=== PATIENT | female | born 1985 | race Caucasian/White ===

== ENCOUNTER → 2018-05-02 | Outpatient (CLI) | payer OTHER ==
[2018-05-02 18:31] LABS: BASO % 0.2 % (0.0-1.0); EOS # 0.2 10^3/uL (0.0-0.50); EOS % 1.8 % (0.0-3.0); HEMATOCRIT 36.9 % (36.0-47.0); HEMOGLOBIN 12.6 g/dl (12.0-15.5); IMMATURE GRANULOCYTE % 0.3 % (0-3.0); LYMPH # 4.1 10^3/uL (1.5-4.5); LYMPH % 40.5 % (24.0-44.0); MEAN CORPUSCULAR HEMOGLOBIN 28.3 pg (27.0-33.0); MEAN CORPUSCULAR HGB CONC 34.1 g/dl (32.0-36.5); MEAN CORPUSCULAR VOLUME 82.9 fl (80.0-96.0); MONO # 0.6 10^3/uL (0.0-0.8); MONO % 6.2 % (0.0-5.0); NEUTROPHILS # 5.1 10^3/uL (1.8-7.7); PLATELET COUNT, AUTOMATED 270 10^3/uL (150-450); RED BLOOD COUNT 4.45 10^6/uL (4.00-5.40); RED CELL DISTRIBUTION WIDTH 11.7 % (11.5-14.5)
[2018-05-02 18:57] LABS: FREE T4 1.09 NG/DL (0.76-1.46); THYROID STIMULATING HORMONE 0.664 uIU/ML (0.358-3.740)
[2018-05-02 19:09] LABS: RUBELLA IgG QUALITATIVE IMMUNE (IMMUNE)
[2018-05-02 20:51] LABS: CHLAMYDIA DNA AMPLIFICATION NEGATIVE (NEGATIVE); GC DNA AMPLIFICATION NEGATIVE (NEGATIVE)
[2018-05-04 13:09] LABS: HBsAg Prenatal NEGATIVE (NEGATIVE)
[2018-05-04 13:38] LABS: HIV 1&2 SCREEN CENTAUR NEGATIVE (NEGATIVE)
[2018-05-04 13:38] LABS: HEPATITIS C VIRUS ABY INDEX < 0.0 INDEX (<0.8)
== END ==
LOC: M SMT 15:56
DX: Z34.81 Encounter for supervision of other normal pregnancy, first trimester (principal); Z36.89 Encounter for other specified antenatal screening; Z3A.09 9 weeks gestation of pregnancy

== ENCOUNTER → 2018-07-04 | Outpatient (REF) | payer OTHER ==
[2018-07-04 23:42] LABS: CHLAMYDIA DNA AMPLIFICATION NEGATIVE (NEGATIVE); GC DNA AMPLIFICATION NEGATIVE (NEGATIVE)
== END ==
LOC: M LAB REF 17:09
DX: Z11.3 Encounter for screening for infections with a predominantly sexual mode of transmission (principal)
CPT/HCPCS: 87591

== ENCOUNTER → 2018-07-06 | Outpatient (CLI) | payer OTHER | LOC: M RAD 15:39 | DX: O09.522 Supervision of elderly multigravida, second trimester (principal); Z3A.18 18 weeks gestation of pregnancy | CPT/HCPCS: 76811 ==

== ENCOUNTER 2018-07-22 17:03 | Emergency (ER) | payer OTHER ==
[~2018-07-22] VITALS: Ht 175.3 cm; Wt 88.2 kg
[2018-07-22] MEDS ORDERED: PRENTAB55 PO (17:25)
--- NOTE | 2018-07-22 19:33 | REPVR ---
EXAM: US , Limited EXAM DATE/TIME: 07/22/2018 6:43 PM CLINICAL HISTORY: 33 years old, female; Signs and symptoms; Lmp or gestational age (in weeks): 22+; Other: Verbal argument with ; ; Additional info: Trauma TECHNIQUE: Real-time ultrasound of the maternal uterus with image documentation. Exam focused on the clinical indication. COMPARISON: US OBS SINGEL GEST 07/06/2018 3:56 PM FINDINGS: Biometry- not performed Amniotic fluid volume: Qualitatively normal Placenta: Anterior and free of the cervical os. No retroplacental fluid collections. Cervix length: 4.1 cm and closed. Presentation: Cephalic HR = 149 bpm Survey- not performed IMPRESSION: 1. Single live intrauterine . biometry and survey was not performed. 2. No retroplacental hemorrhage noted. Electronically signed by: Evangelina Wilkerson On 07/22/2018 19:32:50 PM
[2018-07-22 21:50] VITALS: BP 128/64
== END 2018-07-22 21:54 | disposition home or self-care (01) ==
LOC: M ED 17:03
DX: O99.342 Other mental disorders complicating pregnancy, second trimester (principal); F43.0 Acute stress reaction; Z3A.22 22 weeks gestation of pregnancy

== ENCOUNTER → 2018-08-08 | Outpatient (CLI) | payer OTHER ==
[~2018-08-08] MED LIST: PRENTAB55 PO
--- NOTE | 2018-08-09 02:04 | REP ---
Clinical: Anatomical evaluation. Comparison: 07/22/2018 . Findings: Examination demonstrates a single live intrauterine in cephalic presentation. motion is identified by technologist. Placenta is noted anterior and grade there are grade 1 without evidence for placenta previa or abruption. Amniotic fluid volume is normal. Cervix measures the 0.1 cm in length and appears closed. No evidence for nuchal cord. Gestational age by LMP 23 weeks 4 days with TANA 12/01/2018 . Gestational age by current measurements 24 weeks 6 days with TANA 11/22/2018 . FHR equals 144 beats per minute. Estimated weight 786 grams ( 97th percentile). Anatomical assessment demonstrates normal structures including cranium, choroid plexus, cavum, cerebellum/posterior fossa, facial features, lungs, four-chamber heart/ventricular outflow tracts, diaphragm, stomach, cord insertion/three-vessel cord, kidneys/bladder, spine, and extremities. Impression: Single live intrauterine demonstrating appropriate interval growth when compared to first ultrasound. Anatomical assessment is complete and normal. No gross abnormalities are identified. Electronically Signed by Darius Mock MD 08/09/2018 01:56 A
== END ==
LOC: M RAD 09:12
PROVIDERS: ATTEND Obstetrics & Gynecology
DX: O09.522 Supervision of elderly multigravida, second trimester (principal); Z3A.23 23 weeks gestation of pregnancy

== ENCOUNTER → 2018-09-20 | Outpatient (CLI) | payer OTHER ==
[2018-09-20 10:25] LABS: HEMATOCRIT 35.5 % (36.0-47.0); HEMOGLOBIN 11.8 g/dl (12.0-15.5); MEAN CORPUSCULAR HEMOGLOBIN 28.7 pg (27.0-33.0); MEAN CORPUSCULAR HGB CONC 33.2 g/dl (32.0-36.5); MEAN CORPUSCULAR VOLUME 86.4 fl (80.0-96.0); PLATELET COUNT, AUTOMATED 212 10^3/uL (150-450); RED BLOOD COUNT 4.11 10^6/uL (4.00-5.40); WHITE BLOOD COUNT 9.6 10^3/uL (4.0-10.0)
== END ==
LOC: M SMT 08:00
PROVIDERS: ATTEND Obstetrics & Gynecology
DX: O09.522 Supervision of elderly multigravida, second trimester (principal)

== ENCOUNTER → 2018-10-31 | Outpatient (REF) | payer OTHER | LOC: M LAB REF 17:19 | PROVIDERS: ATTEND Obstetrics & Gynecology | DX: O09.523 Supervision of elderly multigravida, third trimester (principal) ==

== ENCOUNTER 2018-11-27 00:20 | Inpatient (IN) | payer OTHER ==
[~2018-11-27] VITALS: Ht 177.8 cm; Wt 99.4 kg
[2018-11-27] VITALS (15 sets, daily range): BP systolic 112–153; BP diastolic 59–94
[2018-11-27] MEDS ORDERED: LACTATED RINGER'S 1000 ML IV STA (00:50)
[2018-11-27] MEDS ORDERED: LR 1,000 ML IV SCH (00:50)
[2018-11-27 01:06] LABS: BASO % 0.3 % (0.0-1.0); EOS # 0.2 10^3/uL (0.0-0.50); EOS % 1.3 % (0.0-3.0); HEMATOCRIT 34.3 % (36.0-47.0); HEMOGLOBIN 11.7 g/dl (12.0-15.5); MEAN CORPUSCULAR HGB CONC 34.1 g/dl (32.0-36.5); MEAN CORPUSCULAR VOLUME 84.9 fl (80.0-96.0); MONO # 0.9 10^3/uL (0.0-0.8); MONO % 7.5 % (0.0-5.0); NEUTROPHILS # 6.3 10^3/uL (1.8-7.7); NEUTROPHILS % 55.4 % (36.0-66.0); PLATELET COUNT, AUTOMATED 193 10^3/uL (150-450); RED BLOOD COUNT 4.04 10^6/uL (4.00-5.40); WHITE BLOOD COUNT 11.3 10^3/uL (4.0-10.0)
[2018-11-27] MEDS ORDERED: FENTANYL 2MCG/ML ROPIVACAINE 0.2% IN 0.9% NACL 100ML IVBAG As Ordered ONE (01:14)
[2018-11-27] MEDS ORDERED: OXYTOCIN 30 UNITS IN 0.9% NaCl 500ML IV BAG (J2590) As Ordered ONE (01:15)
--- NOTE | 2018-11-27 02:02 | IPNPDOC ---
Obstetrical Progress Note Date of Service November 27, 2018 Subjective Patient is comfortable with her epidural. Assessment Heart Rate (FHR): 125 Variability: Moderate Accelerations: Positive Decelerations: None Heart Rate Tracing: Category I Tocometer Contractions: Yes Frequency: regular Sterile Vaginal Examination Dilation: 7 cm Effacement (%): 100% Station: 0 Cervical Consistency: Soft Cervical Position: Anterior Postion/Presentation: Cephalic presentation Assessment and Plan Status: Reassuring Group B Streptococcus: Negative Anticipate: Vaginal Delivery MIS CHEW CNM November 27, 2018 02:01
[2018-11-27] MEDS ORDERED: METHYLERGONOVINE MALEATE 0.2 MG TAB PO PRN (03:00)
[2018-11-27] MEDS ORDERED: DIBUCAINE 1% OINTMENT 30GM TOP PRN (03:00)
[2018-11-27] MEDS ORDERED: IBUPROFEN 800 MG TAB PO PRN (03:00)
[2018-11-27] MEDS ORDERED: MEASLES,MUMPS,RUBELLA VACCINE INJ (MMR-II) (90707) SC SCH (03:00)
[2018-11-27] MEDS ORDERED: RHOGAM 300 MCG (1500 IU) INJ (J2790) IM SCH (03:00)
[2018-11-27] MEDS ORDERED: IBUPROFEN 600 MG TAB PO PRN (03:00)
[2018-11-27] MEDS ORDERED: DOCUSATE SODIUM 100 MG CAP PO PRN (03:00)
[2018-11-27] MEDS ORDERED: OXYTOCIN DRIP 30 UNITS in APPROPRIATE DILUENT 1 EA IV SCH (03:00)
--- NOTE | 2018-11-27 03:13 | DNPDOC ---
[facility] Delivery Note Delivery Note DATE OF DELIVERY: 11/27/2018 at 0229 PREDELIVERY DIAGNOSIS: 39-3/7 weeks' gestation and labor. POST DELIVERY DIAGNOSIS: Delivered. PROCEDURE: Spontaneous vaginal delivery. INSTRUMENTAL MUSICIAN: Mis Kincaid CNM, VITA ANESTHESIA: epidural. ESTIMATED BLOOD LOSS: 250 mL. FINDINGS: 7 pounds 7 ounces; 3360 grams; male , Score 9/9, nuchal cord times 2 tight, terminal meconium, AMA. DELIVERY SUMMARY: Patient is a 33-year-old female who is now a at 39.3 weeks gestation who presented to labor and delivery in active labor. She received an epidural for pain management. The patient progressed to fully dilated at 0211 and pushed to a living male in the OA position with restitution to LOT at 0233. A tight nuchal x2 was noted. The anterior shoulder delivered with ease and the corpus immediately followed. The baby was placed on the maternal abdomen active and crying with stimulation. The cord was clamped x2 and cut by the mother after pulsation ceased. The placenta delivered spontaneously and intact at 0233. Uterine hemostasis was achieved via rapid infusion of IV Pitocin and fundal massage. The vagina, cervix, and perineum were inspected and found to be intact. The mom is naming her son Diogenes and she plans to breast feed him. Both mom and baby are in stable condition. MIS KINCAID CNM November 27, 2018 03:13
[2018-11-27] MEDS ORDERED: ePHEDrine SULFATE 25 MG/5 ML(5MG/ML) SYRINGE IV PRN (04:00)
[2018-11-27] MEDS ORDERED: ONDANSETRON 4MG/2ML VIAL (J2405) IV PRN (04:00)
[2018-11-27] MEDS ORDERED: EPIDURAL/PCA KEYS XX PRN (04:00)
[2018-11-27] MEDS ORDERED: EPIDURAL COMMENT XX SCH (04:00)
[2018-11-27] MEDS ORDERED: diphenhydrAMINE INJ 50MG/ML VIAL (J1200) IV PRN (04:00)
[2018-11-27] MEDS ORDERED: NALOXONE INJ 0.4 MG/1 ML VIAL (J2310) IV PRN (04:00)
[2018-11-27] MEDS ORDERED: FENTANYL/ROPIVACAINE/NACL BAG 100 ML EPIDURAL SCH (04:00)
[2018-11-27] MEDS ORDERED: REFRIGERATOR IV KEYS XX PRN (04:00)
[2018-11-27] MEDS: ACETAMINOPHEN TAB 650MG DOSE (2X325MG) PO PRN (04:40)
--- NOTE | 2018-11-27 05:30 | HPE ---
DATE OF ADMISSION: The patient is a 33-year-old female who is a (G) 2, para (P) 1-0-0-1 at 39 weeks and 3 days gestation with an estimated date of delivery (TANA) of 12/01/2018 based on her last menstrual period and consistent with her first trimester ultrasound. The patient initiated care in her first trimester with [facility]. Her has been uncomplicated. She presents to labor and delivery with complaints of contractions. She reports active movement. She denies leaking of fluid or vaginal bleeding. ALLERGIES: No known drug allergies. CURRENT MEDICATIONS: - Ranitidine 150 mg - vitamins PAST MEDICAL HISTORY: Varicella as a child. PAST SURGICAL HISTORY: None. SOCIAL HISTORY: The patient is legally from her . She is [place] and does not speak Samoan well. There is no history alcohol abuse or drug use. She denies ever smoking. She has not history of sexually transmitted infections. FAMILY HISTORY: Significant for diabetes and hypertension. OBSTETRICAL HISTORY: Past April 2012 at 38 weeks the patient delivered a male weighing 6 pounds, 6 ounces via vaginal delivery without any complications. OBSTETRICAL LABS: The patient's blood type is O positive with a negative antibody screen. Her hemoglobin was 12.6 and hematocrit was 36.9 with platelets 270. Rubella immune. VDRL nonreactive. She had no growth in her urine. Hepatitis B surface antigen is negative. HIV is negative. Hepatitis C is nonreactive. Gonorrhea and chlamydia are both negative. Her one hour diabetes screen is 97 with a hemoglobin 11.8, and hematocrit of 35.5 on 09/20/2018 with platelets of 212. Her group B Streptococcus (GBS) was negative. heart rate 125 with moderate variability, positive accelerations, occasional variable decelerations with contractions. Contractions every 3-5 minutes. VAGINAL EXAMINATION: The cervix is dilated at 6 cm, 100% effaced and zero station, membranes are intact. Scant bloody show noted with exam. PHYSICAL EXAMINATION: GENERAL: Alert and oriented times three. RESPIRATORY: Regular rate in-between contractions with no use of accessory muscles. ABDOMEN: Gravid, soft to palpation between contractions, strong palpation with contractions. EXTREMITIES: Bilateral generalized edema in lower feet and legs. No clonus. ASSESSMENT: Intrauterine at 39.3 weeks. Active labor. Category 2 heart rate tracing. Negative group B Streptococcus (GBS). PLAN: Admit to labor and delivery. Out of bed ad chase. Diet on clears. Intravenous (IV) and labs per unit protocol. Anesthesia consult per patient's request. Anticipate cervical change and spontaneous vaginal delivery.
[2018-11-27] MEDS ORDERED: ADACEL/BOOSTRIX VACCINE (DIPHTH/PERTUSS/ACELL/TETANUS)0.5ML SYR (90715) IM ONE (09:00)
[2018-11-27] MEDS: PRENATAL VITAMINS CHEWABLE TABLET PO SCH (09:21)
[2018-11-27] MEDS: ACETAMINOPHEN 500 MG TAB PO PRN ×2 (09:46→18:03)
[2018-11-28 05:39] VITALS: BP 106/54
--- NOTE | 2018-11-28 07:04 | NUR ---
PPD#1 S: Doing well w/o complaints. Pain moderately controlled. Tolerating reg diet, + ambulation O: vss, AF Gen: well appearing abd: soft, nntp ext: neg calf tenderness A/P: PPD # 1 s/p - recovering in stable condition -cont routine postoperative care -disposition tomorrow, or later today Radha Sr MD
[2018-11-28] MEDS: ACETAMINOPHEN TAB 650MG DOSE (2X325MG) PO PRN (08:14)
[2018-11-28] MEDS: PRENATAL VITAMINS CHEWABLE TABLET PO SCH (08:14)
[2018-11-28] MEDS ORDERED: ADACEL/BOOSTRIX VACCINE (DIPHTH/PERTUSS/ACELL/TETANUS)0.5ML SYR (90715) IM ONE (09:00)
[2018-11-28] MEDS ORDERED: MAPA500T2 PO (15:36)
[2018-11-28] MEDS ORDERED: IBUP-1114 PO (15:40)
== END 2018-11-28 16:00 | disposition home or self-care (01) | DRG 807 ==
LOC: M LDO 00:20 → M LDI 00:42 → M OBS 04:01
PROVIDERS: ADMIT Advanced Practice Midwife; ATTEND Advanced Practice Midwife
PROC: 10E0XZZ Delivery of Products of Conception, External Approach (ICD-10-PCS; principal; 2018-11-27)
DX: O69.1XX0 Labor and delivery complicated by cord around neck, with compression, not applicable or unspecified (principal); Z37.0 Single live birth; Z3A.39 39 weeks gestation of pregnancy

== ENCOUNTER → 2019-03-29 | Outpatient (REF) | payer OTHER ==
[~2019-03-29] MED LIST changes: +IBUP-1114 PO; +MAPA500T2 PO
[2019-04-02 14:07] LABS: HPV HYBRID CAPTURE II Negative (Negative)
== END ==
LOC: M LAB REF 13:12
PROVIDERS: ATTEND Advanced Practice Midwife
DX: Z12.4 Encounter for screening for malignant neoplasm of cervix (principal)